=== PATIENT | female | born 1980 | race Caucasian/White ===

== ENCOUNTER 2021-02-15 10:49 | Emergency (ER) | payer SELFPAY | END 2021-02-15 11:33 | disposition home or self-care (01) | LOC: MADERS 10:49 | DX: J32.9 Chronic sinusitis, unspecified (principal); F17.290 Nicotine dependence, other tobacco product, uncomplicated | CPT/HCPCS: 99283 ==

== ENCOUNTER 2021-02-22 07:51 | Emergency (ER) | payer SELFPAY ==
[2021-02-22 21:41] LABS: SARS-CoV-2 PCR by NAA DETECTED (NotDetected)
== END 2021-02-22 11:33 | disposition home or self-care (01) ==
LOC: MADERS 07:51
DX: U07.1 COVID-19 (principal); J20.9 Acute bronchitis, unspecified; F17.290 Nicotine dependence, other tobacco product, uncomplicated
CPT/HCPCS: 71045; U0003; U0005

== ENCOUNTER 2021-10-13 20:31 | Emergency (ER) | payer OTHER, SELFPAY | END 2021-10-13 23:13 | disposition home or self-care (01) | LOC: MADERS 20:31 | DX: S93.401A Sprain of unspecified ligament of right ankle, initial encounter (principal); M19.90 Unspecified osteoarthritis, unspecified site; X50.1XXA Overexertion from prolonged static or awkward postures, initial encounter; Z87.891 Personal history of nicotine dependence ==

== ENCOUNTER 2021-10-25 05:05 | Emergency (ER) | payer SELFPAY ==
[2021-10-25] MEDS ORDERED: Acetaminophen 500 MG TAB ONE (05:47)
[2021-10-25] MEDS ORDERED: Ondansetron ODT 4 MG TAB ONE (05:52)
== END 2021-10-25 05:55 | disposition home or self-care (01) ==
LOC: MADERS 05:05
DX: U07.1 COVID-19 (principal); M19.90 Unspecified osteoarthritis, unspecified site; E66.9 Obesity, unspecified; Z68.45 Body mass index [BMI] 70 or greater, adult; Z87.891 Personal history of nicotine dependence
CPT/HCPCS: 99283; Q0162; U0003; U0005

== ENCOUNTER 2021-10-29 19:17 | Emergency (ER) | payer SELFPAY ==
[~2021-10-29 19:17] MED LIST: Iopamidol 370 76% 125 ML VIAL FS ONE; Sodium Chloride 0.9% 100 ML BAG ONE
[2021-10-29 19:56] LABS: #Basophils 0.1 thou/uL (0.0-0.2); #Eosinphils 0.1 thou/uL (0.0-0.7); #Lymphocytes 2.3 thou/uL (1.20-3.40); #Monocytes 0.4 thou/uL (0.11-0.59); #Neutrophils 2.5 thou/uL (1.40-6.50); %Basophils 0.9 % (0.0-1.0); %Eosinophils 2.7 % (0.0-10.0); %Monocytes 7.6 % (0.0-10.0); %Neutrophils 45.8 % (42.0-75.0); Hemoglobin 13.8 g/dL (12.0-16.0); Mean Corpuscular HGB CONC 33.2 g/dL (32.0-36.0); Mean Corpuscular Hemoglobin 29.8 pg (27.0-31.0); Mean Corpuscular Volume 89.9 fL (78.0-98.0); Mean Platelet Volume 7.6 fL (7.4-10.4); Platelet Count 227 thou/uL (130-400); RBC Distribution Width 12.3 % (11.5-14.5); Red Blood Cell (RBC) Count 4.61 mill/uL (4.20-5.40); White Blood Cell (WBC) Count 5.4 thou/uL (4.8-10.8)
[2021-10-29] MEDS ORDERED: Ondansetron PF 4 MG/2 ML Vial ONE (20:01)
[2021-10-29] MEDS ORDERED: Ketorolac Tromethamine 30 MG/ML VIAL ONE (20:01)
[2021-10-29 20:08] LABS: BHCG - Serum Negative (NEGATIVE); Pregs Control Background? CLEAR/WHITE (CLR/WHITE); Pregs Control Bar Appear? YES (CONTROL BAR)
[2021-10-29 20:12] LABS: ALT (SGPT) 11 U/L (8-55); AST (SGOT) 13 U/L (5-34); Albumin 3.8 g/dL (3.5-5.0); Alkaline Phosphatase 51 U/L (40-110); Anion Gap 15 mmol/L (10-20); BUN (Urea Nitrogen) 18 mg/dL (7.0-18.7); Bilirubin, Total 0.5 mg/dL (0.2-1.2); Calc. Creatinine Clearance 0 mL/min (70-130); Calcium 8.6 mg/dL (7.8-10.44); Carbon Dioxide 22 mmol/L (22-29); Chloride 108 mmol/L (98-107); Estimated GFR 112; Glucose 92 mg/dL (70-105); Protein, Total 6.8 g/dL (6.0-8.3); Sodium 141 mmol/L (136-145)
[2021-10-29] MEDS ORDERED: diphenhydrAMINE 50 MG/ML VIAL ONE (21:34)
[2021-10-29] MEDS ORDERED: Famotidine/PF 20 mg/2ml Vial ONE (21:34)
[2021-10-29] MEDS ORDERED: methylPREDNISolone Sod Succ/PF 125 MG/2 ML VIAL ONE (21:34)
== END 2021-10-30 00:45 | disposition home or self-care (01) ==
LOC: MADERS 19:17
DX: U07.1 COVID-19 (principal); J20.8 Acute bronchitis due to other specified organisms; R09.1 Pleurisy; M19.90 Unspecified osteoarthritis, unspecified site; E66.9 Obesity, unspecified; Z68.45 Body mass index [BMI] 70 or greater, adult; Z87.891 Personal history of nicotine dependence
CPT/HCPCS: 36415; 71045; 71275; 80053; 84484; 84703; 85025; 85379; 93005; 94760; 96374; 96375; J1200; J1885; J2405; J2930; Q9967; S0028

== ENCOUNTER 2022-01-16 22:35 | Emergency (ER) | payer OTHER, SELFPAY | END 2022-01-17 00:09 | disposition home or self-care (01) | LOC: MADERS 22:35 | DX: S90.111A Contusion of right great toe without damage to nail, initial encounter (principal); M19.90 Unspecified osteoarthritis, unspecified site; E66.9 Obesity, unspecified; W20.8XXA Other cause of strike by thrown, projected or falling object, initial encounter; Y92.69 Other specified industrial and construction area as the place of occurrence of the external cause; Z87.891 Personal history of nicotine dependence; Z79.899 Other long term (current) drug therapy ==

== ENCOUNTER 2022-03-19 07:38 | Emergency (ER) | payer SELFPAY ==
[2022-03-19] MEDS ORDERED: Dexamethasone 10 MG/ML VIAL ONE (08:55)
== END 2022-03-19 09:39 | disposition home or self-care (01) ==
LOC: MADERS 07:38
DX: J06.9 Acute upper respiratory infection, unspecified (principal); Z20.822 Contact with and (suspected) exposure to COVID-19; Z87.891 Personal history of nicotine dependence
CPT/HCPCS: 36415; 87804; 96372; 99283; J1100; U0003; U0005

== ENCOUNTER 2022-07-26 18:55 | Emergency (ER) | payer SELFPAY ==
[2022-07-26] MEDS ORDERED: Ibuprofen 800 MG TAB ONE (19:08)
== END 2022-07-26 19:10 | disposition home or self-care (01) ==
LOC: MADERS 18:55
DX: H92.03 Otalgia, bilateral (principal); J30.2 Other seasonal allergic rhinitis
CPT/HCPCS: 99282

== ENCOUNTER 2022-12-20 09:04 | Emergency (ER) | payer SELFPAY | END 2022-12-20 09:17 | disposition home or self-care (01) | LOC: MADERS 09:04 | DX: B34.9 Viral infection, unspecified (principal); Z20.822 Contact with and (suspected) exposure to COVID-19 | CPT/HCPCS: 87635; 99283 ==

== ENCOUNTER 2023-02-12 19:36 | Emergency (ER) | payer SELFPAY ==
[~2023-02-12 19:36] MED LIST changes: -Iopamidol 370 76% 125 ML VIAL FS ONE; +Sodium Chloride 0.9% 1,000 ML BAG ONE; -Sodium Chloride 0.9% 100 ML BAG ONE
[2023-02-12] MEDS ORDERED: diphenhydrAMINE 50 MG/ML VIAL ONE (20:22)
[2023-02-12] MEDS ORDERED: Metoclopramide HCl 10 MG/2 ML VIAL ONE (20:22)
[2023-02-12 20:55] LABS: Hematocrit 40.9 % (36.0-47.0); Hemoglobin 13.4 g/dL (12.0-16.0); Lymphocytes 17 % (21-51); MDiff Complete? YES; Mean Corpuscular HGB CONC 32.8 g/dL (32.0-36.0); Mean Corpuscular Hemoglobin 32.4 pg (27.0-31.0); Mean Corpuscular Volume 98.8 fl (78.0-98.0); Mean Platelet Volume 8.1 fL (7.4-10.4); Monocytes 7 % (0-10); Neutrophil 76 % (42-75); Platelet Count 255 10x3/uL (130-400); Red Blood Cell (RBC) Count 4.14 mill/uL (4.20-5.40); White Blood Cell (WBC) Count 8.5 10x3/uL (4.8-10.8)
[2023-02-12 20:58] LABS: ALT (SGPT) 14 U/L (8-55); AST (SGOT) 14 U/L (5-34); Albumin 3.8 g/dL (3.5-5.0); Alkaline Phosphatase 57 U/L (40-110); Anion Gap 12 mmol/L (10-20); BUN (Urea Nitrogen) 19 mg/dL (7.0-18.7); Bilirubin, Total 0.5 mg/dL (0.2-1.2); Calc. Creatinine Clearance 0 mL/min (70-130); Calcium 9.3 mg/dL (7.8-10.44); Carbon Dioxide 24 mmol/L (22-29); Chloride 108 mmol/L (98-107); Estimated GFR 106; Globulin 3.1 g/dL (2.4-3.5); Glucose 101 mg/dL (70-105); INR-International Normal Ratio 0.9; Potassium 3.9 mmol/L (3.5-5.1); Protein, Total 6.9 g/dL (6.0-8.3); Prothrombin Time 12.7 sec (12.0-14.7); Sodium 140 mmol/L (136-145)
== END 2023-02-12 21:36 | disposition home or self-care (01) ==
LOC: MADERS 19:36
DX: G43.909 Migraine, unspecified, not intractable, without status migrainosus (principal); M19.90 Unspecified osteoarthritis, unspecified site; E66.9 Obesity, unspecified; Z87.891 Personal history of nicotine dependence
CPT/HCPCS: 80053; 85025; 85610; 96365; 96368; J1200; J2765; J7050

== ENCOUNTER 2024-02-10 11:41 | Emergency (ER) | payer OTHER ==
[2024-02-10] MEDS ORDERED: Dexamethasone 10 MG/ML VIAL ONE (12:13)
== END 2024-02-10 13:01 | disposition home or self-care (01) ==
LOC: MADERS 11:41
DX: J01.90 Acute sinusitis, unspecified (principal); Z55.6 Problems related to health literacy; Z87.891 Personal history of nicotine dependence
CPT/HCPCS: 71046; 96372; J1100

== ENCOUNTER 2024-03-16 11:11 | Emergency (ER) | payer OTHER | END 2024-03-16 12:57 | disposition home or self-care (01) | LOC: MADERS 11:11 | DX: J01.40 Acute pansinusitis, unspecified (principal); M19.90 Unspecified osteoarthritis, unspecified site; Z87.891 Personal history of nicotine dependence | CPT/HCPCS: 87081; 87400; 87430; 99284 ==

== ENCOUNTER 2024-04-17 10:13 | Emergency (ER) | payer OTHER, SELFPAY ==
[2024-04-17] MEDS ORDERED: Ketorolac Tromethamine 30 MG (1 mL) VIAL ONE (11:23)
[2024-04-17] MEDS ORDERED: valACYclovir 500 MG TAB ONE (11:23)
== END 2024-04-17 11:33 | disposition home or self-care (01) ==
LOC: MADERS 10:13
DX: B02.9 Zoster without complications (principal); Z87.891 Personal history of nicotine dependence
CPT/HCPCS: 99282; J1885

== ENCOUNTER 2024-12-10 10:48 | Emergency (ER) | payer SELFPAY | END 2024-12-10 11:17 | disposition home or self-care (01) | LOC: MADERS 10:48 | DX: J01.90 Acute sinusitis, unspecified (principal); F17.290 Nicotine dependence, other tobacco product, uncomplicated | CPT/HCPCS: 99283 ==